=== PATIENT | male | born 1960 | race Hispanic/Latino ===

== ENCOUNTER → 2025-05-30 | Outpatient (CLI) | payer OTHER ==
[2025-05-30 12:08] LABS: IMMATURE GRANULOCYTE ABSOLUTE 0.02 K/uL (0-1); NUCLEATED RED BLOOD CELLS 0.0 % (0.0-0.19); PLATELET COUNT (AUTO) 31 K/uL (130-400); RED BLOOD CELL COUNT(AUTO) 3.47 MIL/uL (4.50-6.20); RED CELL DISTRIBUTION WIDTH 15.0 % (11.0-15.5); WHITE BLOOD COUNT (AUTO) 3.2 K/uL (4.8-10.8)
[2025-05-30 12:20] LABS: ASPARTATE AMINOTRANSFERASE 61.0 U/L (10-37); CREATININE 1.3 mg/dL (0.5-1.3); GLOMERULAR FILTR. RATE CALC 61.0 mL/min (>90); GLUCOSE,RANDOM 116.0 mg/dL (70-105); SODIUM SERUM 128.0 mmol/L (136-145); TOTAL PROTEIN, SERUM 7.2 g/dL (6.0-8.3); UREA NITROGEN, BLOOD 9.0 mg/dL (7-18)
[2025-05-30 12:38] LABS: INR 1.33 (0.85-1.15)
[2025-05-31 12:48] LABS: HEPATITIS A IGM ANTIBODY Non-Reactive (Nonreactive); HEPATITIS B CORE IGM ANTIBODY Non-Reactive (Negative)
== END | disposition home or self-care (01) ==
LOC: LAB 11:26
PROVIDERS: ATTEND Internal Medicine Gastroenterology
DX: K74.60 Unspecified cirrhosis of liver (principal)
CPT/HCPCS: 36415; 80053; 80074; 81256; 82105; 85025; 85610